=== PATIENT | male | born 1970 | race Caucasian/White ===

== ENCOUNTER 2018-02-25 07:12 | Emergency (ER) | payer SELFPAY ==
--- OUTSIDE RECORDS SUMMARY | 2018-02-25 07:14 | XMS REPORT ---
:1970 [facility] [address] [address] [place] [address] Care Team Providers Name Role Phone DR TRISTIN MACE Unavailable Unavailable Problems This patient has no known problems. Allergies, Adverse Reactions, Alerts This patient has no known allergies or adverse reactions. Medications This patient has no known medications. Results Test Description Test Time Test Comments Text Results Atomic Results Result Comments OVA AND PARASITE EXAM 2017-01-15 07:41:00 Test Item Value Reference Range Comments Direct Exam (test code=DE1) TESTING PERFORMED BY: [employer] Direct Exam (test code=DE17) [id number] Direct Exam (test code=DE2) NO OVA ,CYSTS, OR PARASITES SEEN STOOL CULTURE (GI)2017-01-13 12:32:00 Test Item Value Reference Range Comments Culture Observations (test NO SALMONELLA, SHIGELLA, STAPH code=COB1) AUREUS OR CAMPYLOBACTER ISOLATED. SCREENING Culture Observations (test NEGATIVE FOR E. COLI 0157:H7 code=COB17) Culture Observations (test REDUCED NORMAL COOKIE, GRAM code=COB2) POSITIVE ORGANISMS ONLY. DIRECT STREP GROUP [id number] 10:58:00 Test Item Value Reference Range Comments Culture Observations (test NO BETA HEMOLYTIC code=COB1) STREPTOCOCCUS ISOLATED Direct Exam (test code=DE3) NEGATIVE FOR STREP A ANTIGEN NM HIDA SCAN WITH [id number] 13:18:28HIDA scanLocation code: [id number] history: Right upper quadrant painComments: Following the intravenous administration of 6.0 mCi of technetium 99mCholetec, sequential imaging of the abdomen was performed. There is promptclearance and uptake by the liver with prompt excretion into the biliarysystem. There is visualization of the common bile duct and gallbladder at 15minutes and eventually opacification of the small bowel at 60 minutes.Impression:1. No evidence of acute cholecystitis.OCCULT [id number] 06:41:00 Test Item Value Reference Range Comments Direct Exam (test code=DE1) POSITIVE FOR OCCULT BLOOD BASIC METABOLIC [id number] 05:16:00 Test Item Value Reference Range Comments GLUCOSE (test code=06D) 74 mg/dL 75-100 SODIUM (test code=01A) 140 mmol/L 136-145 POTASSIUM (test code=01B) 3.6 mmol/L 3.6-5.1 CHLORIDE (test code=04A) 108 mmol/L 98-107 CO2 (test code=02A) 24 mmol/L 22-32 ANION GAP (test code=ANG) 11.6 mmol/L BUN (test code=05D) 8 mg/dL 7-18 CREATININE (test code=03E) 0.7 mg/dL 0.7-1.3 BUN/CREA R (test code=BCR) 11 12-20 CALCIUM (test code=09D) 7.1 mg/dL 8.3-9.5 CBC (INCLUDES AUTOMATED DIFFERENTIAL)2017-01-11 04:49:00 Test Item Value Reference Range Comments WBC (test code=WBC) 6.9 10\S\3/uL 4.5-11.0 RBC (test code=RBC) 4.61 10\S\6/uL 4.20-5.60 HGB (test code=HBG) 13.8 g/dL 14.0-18.0 HCT (test code=HCT) 41.4 % 35.0-46.0 MCV (test code=MCV) 89.8 fL 80.0-94.0 MCH (test code=MCH) 29.9 pg 27.0-31.0 MCHC (test code=MCHC) 33.3 g/dL 32.0-36.0 RDW (test code=RDW) 12.9 % 11.5-14.5 PLT (test code=PLT) 141 10\S\3/uL 130-400 MPV (test code=MPV) 11.0 fL 9.4-12.4 NEUTROP # (test code=NE#) 4.6 10\S\3/uL 2.0-8.0 LYMPH # (test code=LY#) 1.3 10\S\3/uL 1.2-4.0 MONOCYTE # (test code=MO#) 0.8 10\S\3/uL 0.0-1.1 EOSINOPH # (test code=EO#) 0.1 10\S\3/uL 0.0-0.7 BASOPHIL # (test code=BA#) 0.0 10\S\3/uL 0.0-0.3 IG # (test code=IG#) 0.02 10\S\3/uL 0.00-0.06 NRBC # (test code=NRBC#) 0.00 10\S\3/uL 0.00-0.01 NEUTROPH % (test code=NE%) 66.4 % 35.0-73.0 LYMPH % (test code=LY%) 18.9 % 20.0-55.0 MONO % (test code=MO%) 12.1 % 2.5-10.0 EOSINOPH % (test code=EO%) 2.0 % 0.0-5.0 BASOPHIL % (test code=BA%) 0.3 % 0.0-2.0 IG % (test code=IG%) 0.3 % 0.0-0.8 NRBC% (test code=NRBC%) 0.0 % 0.0-0.2 MANDIFF (test code=MDIFF) NO NO RBC MORPH (test code=RBCMOR) NORMAL U/S [id number] 17:40:53RIGHT UPPER QUADRANT ULTRASOUNDLocation: [id number] HISTORY: Mild bilirubin elevation. Distended gallbladder on CT scanCOMPARISON: CT scan todayTechnique:Real-time Duplex grayscale, color flow and spectral Doppler imaging analysiswas performed. Venous inflow via the portal vein was examined. COMMENT: The liver is normal in size and echogenicity without masses orintrahepatic biliary dilatation. Normal hepatopetal flow in the main portalvein was documented. The gallbladder is mildly distended without gallstones orsludge. Gallbladder wall measures 0.44 cm , mildly thickened. The common bileduct is normal at 0.57 cm. The right kidney measures 11.5 x 5.5 x 5.2 cm inlength, grossly normal. The pancreas is grossly normal. There is no evidenceof free fluid or adenopathy. The visualized portions of the aorta and IVC areunremarkable. IMPRESSION: Distended gallbladder with thick wall. Consider the possibility of acalculuscholecystitis. Consider follow-up MRCP or HIDA scan.CT ABDOMEN AND PELVIS WITH [id number] 15:49:29Contrast-enhanced CT of the abdomen and pelvisClinical indication: Left upper quadrant painComparison: NoneLocation J7Yjegzu CT is obtained from lung bases to the inferior pubic rami afterintravenous contrast with 5 mm axial and coronal and sagittal reconstructionsprovided. Venous and delayed series are performed. One or more of the followingdose reduction techniques were used: Automated exposure control , adjustment ofthe MA and/or kV according to patient size, and/or utilization of iterativereconstruction technique. DLP 1348Lung bases are clear. Heart is normal in size.Vessels are normal in caliber.Liver, spleen, stomach, pancreas, kidneys and adrenal glands are remarkable fora 1 cm cyst in the superior pole of the left kidney.The gallbladder is distended measuring 5 cm in AP diameter and width.The colonis fluid-filled and demonstrates mild thickening of the bowel wall suggestingcolitis or gastroenteritis. Appendix is unremarkable.The urinary bladder, prostate and perirectal soft tissues are unremarkable.Bony structures are unremarkable.Impression:1. Gallbladder is distended and may be hydropic.2. There is fluid and bowel wall thickening of the colon suggestinggastroenteritis or colitis.DIRECT INFLUENZA A AND B [id number] 15:08:00 Test Item Value Reference Range Comments Direct Exam (test code=DE3) PRESUMPTIVE NEGATIVE FOR THE PRESENCE OF INFLUENZA ANTIGEN XR CHEST 2 [id number] 15:06:17Exam: Chest x-ray 2 viewsHISTORY: Chest painLocation: [id number]:The heart size is normal and lung ferreira are clear. Osseous structures areintact.IMPRESSION:1. Normal chest.URINALYSIS WITH [id number] 15:06:00 Test Item Value Reference Range Comments COLOR (test code=COLU) DK YELLOW YELLOW CLARITY (test code=CLA) CLEAR CLEAR GLUCOSE UR (test code=UA GLUCOSE) NEGATIVE NEGATIVE BILI UR (test code=BILE) 1+ NEGATIVE KETONES UR (test code=KITA) TRACE NEGATIVE SP GRAVITY (test code=SPGR) 1.035 1.005-1.030 PH UR (test code=PH) 6.0 4.5-8.0 PROTEIN UR (test code=PU) 2+ NEGATIVE UROBIL UR (test code=UROQ) 0.2 EU/dL 0.2-1.0 NITRITE UR (test code=NITRITE) NEGATIVE NEGATIVE BLOOD UR (test code=UA BLOOD) NEGATIVE NEGATIVE LEUK ES UR (test code=LEUK) TRACE NEGATIVE WBC UR (test code=UWBC) 4 /HPF 0-3 RBC UR (test code=URBC) 0 /HPF 0-2 EPITH UR (test code=UEPC) FEW /LPF NONE BACTERIA UR (test code=UBACT) NONE /HPF NONE CAST UR (test code=CAST) /LPF NONE CRYSTAL UR (test code=CRYU) / LPF NONE MUCUS UR (test code=MUC) FEW / HPF NONE AMORPH UR (test code=CHELSEY) / HPF NONE TRICH UR (test code=UTRICH) /HPF NONE YEAST UR (test code=UY) /HPF NONE SPERM UR (test code=USPERM) /HPF NONE CARDIAC [id number] 15:00:00 Test Item Value Reference Range Comments TROPONIN I (test code=A84) <0.015 ng/mL 0.000-0.045 CKMB (test code=A49) <1.0 ng/mL <=3.6 CPK (test code=32A) 58 IU/L 39-308 [id number] 14:57:00 Test Item Value Reference Range Comments MAGNESIUM (test code=48A) 2.2 mg/dL 1.8-2.4 COMPREHENSIVE METABOLIC [id number] 14:56:00 Test Item Value Reference Range Comments GLUCOSE (test code=06D) 102 mg/dL 75-100 SODIUM (test code=01A) 140 mmol/L 136-145 POTASSIUM (test code=01B) 4.3 mmol/L 3.6-5.1 CHLORIDE (test code=04A) 104 mmol/L 98-107 CO2 (test code=02A) 31 mmol/L 22-32 ANION GAP (test code=ANG) 9.3 mmol/L BUN (test code=05D) 10 mg/dL 7-18 CREATININE (test code=03E) 0.9 mg/dL 0.7-1.3 BUN/CREA R (test code=BCR) 11 12-20 CALCIUM (test code=09D) 8.4 mg/dL 8.3-9.5 BILI TOTAL (test code=11A) 1.3 mg/dL 0.2-1.0 PROTEIN (test code=07D) 7.4 g/dL 6.4-8.2 ALBUMIN (test code=08D) 3.6 g/dL 3.5-4.8 GLOBULIN (test code=GLB) 3.8 g/dL 1.5-3.8 ALB/GLOB (test code=AGRR) 0.9 1.0-2.6 ALK PHOS (test code=35A) 52 IU/L 42-121 AST (test code=30A) 33 IU/L <=42 ALT (test code=31A) 39 IU/L <=78 AMYLASE AND [id number] 14:56:00 Test Item Value Reference Range Comments AMYLASE (test code=10A) 19 U/L 28-100 LIPASE (test code=60A) 87 IU/L 73-393 CBC (INCLUDES AUTOMATED DIFFERENTIAL)2017-01-10 14:37:00 Test Item Value Reference Range Comments WBC (test code=WBC) 9.8 10\S\3/uL 4.5-11.0 RBC (test code=RBC) 5.69 10\S\6/uL 4.20-5.60 HGB (test code=HBG) 16.9 g/dL 14.0-18.0 HCT (test code=HCT) 51.0 % 35.0-46.0 MCV (test code=MCV) 89.6 fL 80.0-94.0 MCH (test code=MCH) 29.7 pg 27.0-31.0 MCHC (test code=MCHC) 33.1 g/dL 32.0-36.0 RDW (test code=RDW) 12.9 % 11.5-14.5 PLT (test code=PLT) 157 10\S\3/uL 130-400 MPV (test code=MPV) 11.3 fL 9.4-12.4 NEUTROP # (test code=NE#) 8.1 10\S\3/uL 2.0-8.0 LYMPH # (test code=LY#) 0.8 10\S\3/uL 1.2-4.0 MONOCYTE # (test code=MO#) 0.7 10\S\3/uL 0.0-1.1 EOSINOPH # (test code=EO#) 0.1 10\S\3/uL 0.0-0.7 BASOPHIL # (test code=BA#) 0.0 10\S\3/uL 0.0-0.3 IG # (test code=IG#) 0.02 10\S\3/uL 0.00-0.06 NRBC # (test code=NRBC#) 0.00 10\S\3/uL 0.00-0.01 NEUTROPH % (test code=NE%) 82.9 % 35.0-73.0 LYMPH % (test code=LY%) 8.6 % 20.0-55.0 MONO % (test code=MO%) 7.3 % 2.5-10.0 EOSINOPH % (test code=EO%) 0.8 % 0.0-5.0 BASOPHIL % (test code=BA%) 0.2 % 0.0-2.0 IG % (test code=IG%) 0.2 % 0.0-0.8 NRBC% (test code=NRBC%) 0.0 % 0.0-0.2 MANDIFF (test code=MDIFF) NO NO RBC MORPH (test code=RBCMOR) NORMAL
[2018-02-25] MEDS ORDERED: IBUPROFEN 400 MG TAB ONE (07:50)
--- NOTE | 2018-02-25 09:17 | ER ---
Nurse's Notes [facility] Name: Semaj Ann Age: 47 yrs Sex: Male : 1970 Arrival Date: 02/25/2018 Time: 07:16 Bed 14 Private MD: Diagnosis: Sprain of ankle-Left Presentation: 02/25 07:34 Presenting complaint: Patient states: slipped while getting out of his truck yesterday, iw rolled left ankle, laceration noted to left great toe, dressing in place, no bleeding. Transition of care: patient was not received from another setting of care. Onset of symptoms was February 24, 2018. Initial Sepsis Screen: Does the patient meet any 2 criteria? No. Patient's initial sepsis screen is negative. Does the patient have a suspected source of infection? No. Patient's initial sepsis screen is negative. Care prior to arrival: None. 07:34 Method Of Arrival: Wheelchair iw 07:34 Acuity: SALONI 4 iw Triage Assessment: 07:45 General: Appears in no apparent distress. uncomfortable, Behavior is calm, cooperative, hj appropriate for age. Pain: Complains of pain in right foot. Musculoskeletal: Reports pain in right foot. Historical: - Allergies: 07:35 NKA; iw - PMHx: 07:35 Hypertension; iw - PSHx: 07:35 Facial reconstruction; Heart surgery - artery repair; iw - Immunization history:: Last tetanus immunization: < 5 years ago. - Social history:: Smoking status: Patient uses tobacco products, smokes one-half pack cigarettes per day. Screenin:45 Abuse screen: Denies threats or abuse. Denies injuries from another. Nutritional hj screening: No deficits noted. Tuberculosis screening: No symptoms or risk factors identified. Fall Risk None identified. Assessment: 07:46 General: Appears in no apparent distress. uncomfortable, Behavior is calm, cooperative, hj appropriate for age. Pain: Complains of pain in right foot. Neuro: Level of Consciousness is awake, alert, obeys commands, Oriented to person, place, time, situation, Appropriate for age. Cardiovascular: Capillary refill < 3 seconds Patient's skin is warm and dry. Respiratory: Airway is patent Respiratory effort is even, unlabored, Respiratory pattern is regular, symmetrical. GI: No signs and/or symptoms were reported involving the gastrointestinal system. : No signs and/or symptoms were reported regarding the genitourinary system. EENT: No signs and/or symptoms were reported regarding the EENT system. Derm: No signs and/or symptoms reported regarding the dermatologic system. Musculoskeletal: Circulation, motion, and sensation intact. Range of motion: Swelling. Vital Signs: 07:35 BP 167 / 118; Pulse 93; Resp 16 S; Temp 98.2(TE); Pulse Ox 98% on R/A; Weight 88.45 kg; iw Height 5 ft. 10 in. (177.80 cm); Pain 8/10; 09:25 BP 155 / 101; Pulse 87; Resp 18; Pulse Ox 99% on R/A; em 07:35 Body Mass Index 27.98 (88.45 kg, 177.80 cm) iw ED Course: 07:16 Patient arrived in ED. rg4 07:30 Hiram Sanchez PA is PHCP. cp 07:30 Lawrence Adler MD is Attending Physician. cp 07:33 Conrad Palumbo, RN is Primary Nurse. hj 07:35 Triage completed. iw 07:35 Arm band placed on. iw 07:46 Patient has correct armband on for positive identification. Bed in low position. Call hj light in reach. Side rails up X 1. 09:06 X-ray completed. Portable x-ray completed in exam room. Patient tolerated procedure jb2 well. 09:08 XRAY Ankle LEFT 3 view In Process Unspecified. EDMS 09:35 No provider procedures requiring assistance completed. Patient did not have IV access em during this emergency room visit. Administered Medications: 07:43 Drug: Ibuprofen 800 mg Route: PO; hj 09:26 Follow up: Response: No adverse reaction; Pain is decreased hj Outcome: 09:17 Discharge ordered by . cp 09:36 Discharged to home ambulatory. em 09:36 Condition: good 09:36 Discharge instructions given to patient, Instructed on discharge instructions, follow up and referral plans. medication usage, Demonstrated understanding of instructions, follow-up care, medications, crutch walking, Prescriptions given X 1. 09:36 Patient left the ED. em Signatures: Dispatcher [employer] EDMS Stevie Nathan jb2 Nick Landis, SEASONAL DELIVERY DRIVER SEASONAL DELIVERY DRIVER em Reena Frances RN RN Linwood, Conrad, RN RN hj Page, Hiram, PA PA cp Bandar, Randi rg4
--- NOTE | 2018-02-25 09:17 | RAD REPORT ---
EXAM DESCRIPTION: RAD - Ankle Left 3 View -02/25/2018 9:08 am CLINICAL HISTORY: Left ankle pain status post injury FINDINGS: No fracture or dislocation is seen.
--- NOTE | 2018-02-25 09:18 | EDPHYS ---
Physician Documentation [facility] Name: Semaj Ann Age: 47 yrs Sex: Male : 1970 Arrival Date: 02/25/2018 Time: 07:16 Bed 14 Private MD: ED Physician Lawrence Adler HPI: 02/25 07:45 This 47 yrs old Male presents to ER via Wheelchair with complaints of Ankle cp Injury. 07:45 The patient presents with an injury, pain, that is acute. The complaints affect the cp left ankle. Onset: The symptoms/episode began/occurred yesterday. 07:45 Context: resulted from a mis-step by the patient, getting out of truck, The patient can cp partially bear weight on the affected extremity. the patient is able to ambulate, with moderate difficulty. Historical: - Allergies: 07:35 NKA; iw - PMHx: 07:35 Hypertension; iw - PSHx: 07:35 Facial reconstruction; Heart surgery - artery repair; iw - Immunization history:: Last tetanus immunization: < 5 years ago. - Social history:: Smoking status: Patient uses tobacco products, smokes one-half pack cigarettes per day. ROS: 07:50 Constitutional: Negative for body aches, chills, fever, poor PO intake. cp 07:50 Eyes: Negative for injury, pain, redness, and discharge. cp 07:50 ENT: Negative for drainage from ear(s), ear pain, sore throat, difficulty swallowing, difficulty handling secretions. 07:50 Cardiovascular: Negative for chest pain, edema, palpitations. 07:50 Respiratory: Negative for cough, shortness of breath, wheezing. 07:50 Abdomen/GI: Negative for abdominal pain, nausea, vomiting, and diarrhea. 07:50 MS/extremity: Positive for pain, tenderness, of the left ankle, Negative for paresthesias. 07:50 All other systems are negative. Exam: 07:58 Constitutional: The patient appears in no acute distress, alert, awake, well developed, cp well nourished. 07:58 Head/Face: Normocephalic, atraumatic. cp 07:58 Eyes: Periorbital structures: appear normal, Conjunctiva: normal, no exudate, no injection, Sclera: no appreciated abnormality, Lids and lashes: appear normal, bilaterally. 07:58 ENT: External ear(s): are unremarkable, Nose: is normal, Mouth: Lips: moist, Oral mucosa: moist, Posterior pharynx: is normal, airway is patent. 07:58 Neck: ROM/movement: is normal, is supple, without pain, no range of motions limitations, no nuchal rigidity. 07:58 Chest/axilla: Inspection: normal. 07:58 Cardiovascular: Rate: normal, Rhythm: regular. 07:58 Respiratory: the patient does not display signs of respiratory distress, Respirations: normal, no use of accessory muscles, no retractions, no splinting, no tachypnea. 07:58 Abdomen/GI: Exam negative for discomfort, distension, guarding, Inspection: abdomen appears normal. 07:58 Musculoskeletal/extremity: Perfusion: the extremity is normally perfused throughout, Sensation intact. Joints: All joints are normal except the left ankle displays swelling, tenderness. 07:58 Skin: cellulitis, is not appreciated, injury, avulsion(s), a small of the right great toe, no rash present. Vital Signs: 07:35 BP 167 / 118; Pulse 93; Resp 16 S; Temp 98.2(TE); Pulse Ox 98% on R/A; Weight 88.45 kg; iw Height 5 ft. 10 in. (177.80 cm); Pain 8/10; 09:25 BP 155 / 101; Pulse 87; Resp 18; Pulse Ox 99% on R/A; em 07:35 Body Mass Index 27.98 (88.45 kg, 177.80 cm) iw Procedures: 09:25 Splinting: Splint applied to left ankle using ankle splint. applied by nurse. Examined cp by me, post splint application: neurovascular intact, Patient tolerated well. 09:25 Crutch training provided to patient and/or family. Return demonstration given. cp MDM: 07:34 Patient medically screened. cp 09:16 Data reviewed: vital signs, nurses notes, radiologic studies, plain films. Test cp interpretation: by ED physician or midlevel provider: plain radiologic studies. Counseling: I had a detailed discussion with the patient and/or guardian regarding: the historical points, exam findings, and any diagnostic results supporting the discharge/admit diagnosis, radiology results, to return to the emergency department if symptoms worsen or persist or if there are any questions or concerns that arise at home. 02/25 07:43 Order name: XRAY Ankle LEFT 3 view; Complete Time: 09:18 cp 02/25 09:18 Interpretation: Report reviewed. cp 02/25 09:09 Order name: Crutches; Complete Time: :34 cp 02/25 09:09 Order name: Ankle Splint: Aircast; Complete Time: :34 cp Administered Medications: 07:43 Drug: Ibuprofen 800 mg Route: PO; 09:26 Follow up: Response: No adverse reaction; Pain is decreased Disposition: 11:34 Co-signature as Attending Physician, Lawrence Adler MD. rn Disposition: 02/25/18 09:17 Discharged to Home. Impression: Sprain of ankle - Left. - Condition is Stable. - Discharge Instructions: Elastic Bandage and RICE, Ankle Sprain. - Prescriptions for Naprosyn 500 mg Oral Tablet - take 1 tablet by ORAL route 2 times per day take with food; 20 tablet. - Work release form, Medication Reconciliation Form, Thank You Letter, Antibiotic Education, Prescription Opioid Use form. - Follow up: Private Physician; When: 5 - 6 days; Reason: Recheck today's complaints. - Problem is new. - Symptoms have improved. Signatures: Dispatcher [employer] EDNick Chavis, CENTRAL OFFICE INSPECTOR CENTRAL OFFICE INSPECTOR em Reena Frances RN RN iw Nieto, Roman, MD MD rn Joaquin, Henry, RN RN hj Page, Corey, PA PA cp Corrections: (The following items were deleted from the chart) 09:36 09:17 02/25/2018 09:17 Discharged to Home. Impression: Sprain of ankle - Left. em Condition is Stable. Forms are Medication Reconciliation Form, Thank You Letter, Antibiotic Education, Prescription Opioid Use. Follow up: Private Physician; When: 5 - 6 days; Reason: Recheck today's complaints. Problem is new. Symptoms have improved. cp
== END 2018-02-25 09:36 | disposition home or self-care (01) ==
LOC: ER 07:12
DX: S93.402A Sprain of unspecified ligament of left ankle, initial encounter (principal); X58.XXXA Exposure to other specified factors, initial encounter; Y93.89 Activity, other specified; Y92.9 Unspecified place or not applicable; I10 Essential (primary) hypertension; F17.210 Nicotine dependence, cigarettes, uncomplicated
CPT/HCPCS: 99284

== ENCOUNTER 2020-06-09 11:48 | Emergency (ER) | payer BC, SELFPAY ==
--- OUTSIDE RECORDS SUMMARY | 2020-06-09 11:50 | XMS REPORT | Continuity of Care Document ---
:1970 Author Organization [facility] t Address [facility] [address] [place] [address] Care Team Providers Name Role Phone DR NAKITA Attending Clinician Unavailable DR NAKITA Admitting Clinician Unavailable Problems This patient has no known problems. Allergies, Adverse Reactions, Alerts This patient has no known allergies or adverse reactions. Medications This patient has no known medications. Procedures This patient has no known procedures. Results Test Description Test Time Test Comments Results Result Comments Source OVA AND PARASITE EXAM 2017-01-15 07:41:00 Test Item Value Reference Range Interpretation Comme nts Direct Exam (test code = DE1) TESTING PERFORMED BY: [employer] [address] Direct Exam (test code = DE17) [id number] Direct Exam (test code = DE2) NO OVA ,CYSTS, OR PARASITES SEEN STOOL CULTURE (GI)2017-01-13 12:32:00 Test Item Value Reference Range Interpretation Comments Culture Observations NO SALMONELLA, (test code = COB1) SHIGELLA, STAPH AUREUS OR CAMPYLOBACTER ISOLATED. SCREENING Culture Observations NEGATIVE FOR E. COLI (test code = COB17) 0157:H7 Culture Observations REDUCED NORMAL COOKIE, (test code = COB2) GRAM POSITIVE ORGANISMS ONLY. DIRECT STREP GROUP [id number] 10:58:00 Test Item Value Reference Range Interpretation Comments Culture Observations NO BETA HEMOLYTIC (test code = COB1) STREPTOCOCCUS ISOLATED Direct Exam (test code NEGATIVE FOR STREP A = DE3) ANTIGEN NM HIDA SCAN WITH [id number] 13:18:28HIDA scanLocation code: [id number] history: Right upper quadrant painComments: Following the intravenous administration of 6.0 mCi of technetium 99mCholetec, sequential imaging of the abdomen was performed. There is promptclearance and uptake by the liver with prompt excretion into the biliarysystem. There is visualization of the common bile duct and gallbladder at 15minutes and eventually opacification of the small bowel at 60 minutes.Impression:1. No evidence of acute cholecystitis.OCCULT [id number] 06:41:00 Test Item Value Reference Range Interpretation Comments Direct Exam (test code POSITIVE FOR OCCULT = DE1) BLOOD BASIC METABOLIC [id number] 05:16:00 Test Item Value Reference Range Interpretation Comments GLUCOSE (test code = 06D) 74 mg/dL 75-100 L SODIUM (test code = 01A) 140 mmol/L 136-145 POTASSIUM (test code = 01B) 3.6 mmol/L 3.6-5.1 CHLORIDE (test code = 04A) 108 mmol/L 98-107 H CO2 (test code = 02A) 24 mmol/L 22-32 ANION GAP (test code = ANG) 11.6 mmol/L BUN (test code = 05D) 8 mg/dL 7-18 CREATININE (test code = 03E) 0.7 mg/dL 0.7-1.3 BUN/CREA R (test code = BCR) 11 12-20 L CALCIUM (test code = 09D) 7.1 mg/dL 8.3-9.5 L CBC (INCLUDES AUTOMATED DIFFERENTIAL)2017-01-11 04:49:00 Test Item Value Reference Range Interpretation Comments WBC (test code = WBC) 6.9 10\S\3/uL 4.5-11.0 RBC (test code = RBC) 4.61 10\S\6/uL 4.20-5.60 HGB (test code = HBG) 13.8 g/dL 14.0-18.0 L HCT (test code = HCT) 41.4 % 35.0-46.0 MCV (test code = MCV) 89.8 fL 80.0-94.0 MCH (test code = MCH) 29.9 pg 27.0-31.0 MCHC (test code = MCHC) 33.3 g/dL 32.0-36.0 RDW (test code = RDW) 12.9 % 11.5-14.5 PLT (test code = PLT) 141 10\S\3/uL 130-400 MPV (test code = MPV) 11.0 fL 9.4-12.4 NEUTROP # (test code = NE#) 4.6 10\S\3/uL 2.0-8.0 LYMPH # (test code = LY#) 1.3 10\S\3/uL 1.2-4.0 MONOCYTE # (test code = MO#) 0.8 10\S\3/uL 0.0-1.1 EOSINOPH # (test code = EO#) 0.1 10\S\3/uL 0.0-0.7 BASOPHIL # (test code = BA#) 0.0 10\S\3/uL 0.0-0.3 IG # (test code = IG#) 0.02 10\S\3/uL 0.00-0.06 NRBC # (test code = NRBC#) 0.00 10\S\3/uL 0.00-0.01 NEUTROPH % (test code = NE%) 66.4 % 35.0-73.0 LYMPH % (test code = LY%) 18.9 % 20.0-55.0 L MONO % (test code = MO%) 12.1 % 2.5-10.0 H EOSINOPH % (test code = EO%) 2.0 % 0.0-5.0 BASOPHIL % (test code = BA%) 0.3 % 0.0-2.0 IG % (test code = IG%) 0.3 % 0.0-0.8 NRBC% (test code = NRBC%) 0.0 % 0.0-0.2 MANDIFF (test code = MDIFF) NO NO RBC MORPH (test code = RBCMOR) NORMAL U/S [id number] 17:40:53RIGHT UPPER QUADRANT ULTRASOUNDLocation: [id number] HISTORY: Mild bilirubin elevation. Distended gallbladder on [...] without gallstones orsludge. Gallbladder wall measures 0.44 cm, mildly thickened. The common bileduct is normal [...] or HIDA scan.CT ABDOMEN AND PELVIS WITH [id number] 15:49:29Contrast- enhanced CT of the abdomen and pelvisClinical indication: Left upper quadrant painComparison: NoneLocation [id number] CT is obtained from lung bases to the inferior pubic rami afterintravenous contrast with 5 mm axial and coronal and sagittal reconstructionsprovided. Venous and delayed series are performed. One or more of the followingdose reduction techniques were used: Automated exposure control, adjustment ofthe MA and/or kV according to patient size, and/or utilization of iterativereconstruction technique. DLP 1348Lung bases are clear. Heart is normal in size.Vessels are normal in caliber.Liver, spleen, stomach, pancreas, kidneys and adrenal glands are remarkable fora 1 cm cyst in the bolden perior pole of the left kidney.The gallbladder is distended measuring 5 cm in AP diameter and width.The colonis fluid-filled and demonstrates mild thickening of the bowel wall suggestingcolitis or gastroenteritis. Appendix is unremarkable.The urinary bladder, prostate and perirectal soft tissues are u nremarkable.Bony structures are unremarkable.Impression:1. Gallbladder is distended and may be hydropic.2. There is fluid and bowel wall thickening of the colon suggestinggastroenteritis or colitis.DIRECT INFLUENZA A AND B DETECT 2017-01-10 15:08:00 Test Item Value Reference Range Interpretation Comments Direct Exam (test PRESUMPTIVE NEGATIVE FOR code = DE3) THE PRESENCE OF INFLUENZA ANTIGEN XR CHEST 2 [id number] 15:06:17Exam: Chest x-ray 2 viewsHISTORY: Chest painLocation: [id number]:The heart size is normal and lung ferreira are clear. Osseous structures areintact.IMPRESSION:1. Normal chest.URINALYSIS WITH MICRO 2017-01-10 15:06:00 Test Item Value Reference Range Interpretation Comments COLOR (test code = COLU) DK YELLOW YELLOW A CLARITY (test code = CLA) CLEAR CLEAR GLUCOSE UR (test code = UA GLUCOSE) NEGATIVE NEGATIVE BILI UR (test code = BILE) 1+ NEGATIVE A KETONES UR (test code = KITA) TRACE NEGATIVE A SP GRAVITY (test code = SPGR) 1.035 1.005-1.030 H PH UR (test code = PH) 6.0 4.5-8.0 PROTEIN UR (test code = PU) 2+ NEGATIVE A UROBIL UR (test code = UROQ) 0.2 EU/dL 0.2-1.0 NITRITE UR (test code = NITRITE) NEGATIVE NEGATIVE BLOOD UR (test code = UA BLOOD) NEGATIVE NEGATIVE LEUK ES UR (test code = LEUK) TRACE NEGATIVE A WBC UR (test code = UWBC) 4 /HPF 0-3 H RBC UR (test code = URBC) 0 /HPF 0-2 EPITH UR (test code = UEPC) FEW /LPF NONE A BACTERIA UR (test code = UBACT) NONE /HPF NONE CAST UR (test code = CAST) /LPF NONE CRYSTAL UR (test code = CRYU) / LPF NONE MUCUS UR (test code = MUC) FEW / HPF NONE A AMORPH UR (test code = CHELSEY) / HPF NONE TRICH UR (test code = UTRICH) /HPF NONE YEAST UR (test code = UY) /HPF NONE SPERM UR (test code = USPERM) /HPF NONE CARDIAC [id number] 15:00:00 Test Item Value Reference Range Interpretation Comments TROPONIN I (test code = A84) <0.015 ng/mL 0.000-0.045 CKMB (test code = A49) <1.0 ng/mL <=3.6 CPK (test code = 32A) 58 IU/L 39-308 [id number] 14:57:00 Test Item Value Reference Range Interpretation Comments MAGNESIUM (test code = 48A) 2.2 mg/dL 1.8-2.4 COMPREHENSIVE METABOLIC [id number] 14:56:00 Test Item Value Reference Range Interpretation Comments GLUCOSE (test code = 06D) 102 mg/dL 75-100 H SODIUM (test code = 01A) 140 mmol/L 136-145 POTASSIUM (test code = 01B) 4.3 mmol/L 3.6-5.1 CHLORIDE (test code = 04A) 104 mmol/L 98-107 CO2 (test code = 02A) 31 mmol/L 22-32 ANION GAP (test code = ANG) 9.3 mmol/L BUN (test code = 05D) 10 mg/dL 7-18 CREATININE (test code = 03E) 0.9 mg/dL 0.7-1.3 BUN/CREA R (test code = BCR) 11 12-20 L CALCIUM (test code = 09D) 8.4 mg/dL 8.3-9.5 BILI TOTAL (test code = 11A) 1.3 mg/dL 0.2-1.0 H PROTEIN (test code = 07D) 7.4 g/dL 6.4-8.2 ALBUMIN (test code = 08D) 3.6 g/dL 3.5-4.8 GLOBULIN (test code = GLB) 3.8 g/dL 1.5-3.8 ALB/GLOB (test code = AGRR) 0.9 1.0-2.6 L ALK PHOS (test code = 35A) 52 IU/L 42-121 AST (test code = 30A) 33 IU/L <=42 ALT (test code = 31A) 39 IU/L <=78 AMYLASE AND [id number] 14:56:00 Test Item Value Reference Range Interpretation Comments AMYLASE (test code = 10A) 19 U/L 28-100 L LIPASE (test code = 60A) 87 IU/L 73-393 CBC (INCLUDES AUTOMATED DIFFERENTIAL)2017-01-10 14:37:00 Test Item Value Reference Range Interpretation Comments WBC (test code = WBC) 9.8 10\S\3/uL 4.5-11.0 RBC (test code = RBC) 5.69 10\S\6/uL 4.20-5.60 H HGB (test code = HBG) 16.9 g/dL 14.0-18.0 HCT (test code = HCT) 51.0 % 35.0-46.0 H MCV (test code = MCV) 89.6 fL 80.0-94.0 MCH (test code = MCH) 29.7 pg 27.0-31.0 MCHC (test code = MCHC) 33.1 g/dL 32.0-36.0 RDW (test code = RDW) 12.9 % 11.5-14.5 PLT (test code = PLT) 157 10\S\3/uL 130-400 MPV (test code = MPV) 11.3 fL 9.4-12.4 NEUTROP # (test code = NE#) 8.1 10\S\3/uL 2.0-8.0 H LYMPH # (test code = LY#) 0.8 10\S\3/uL 1.2-4.0 L MONOCYTE # (test code = MO#) 0.7 10\S\3/uL 0.0-1.1 EOSINOPH # (test code = EO#) 0.1 10\S\3/uL 0.0-0.7 BASOPHIL # (test code = BA#) 0.0 10\S\3/uL 0.0-0.3 IG # (test code = IG#) 0.02 10\S\3/uL 0.00-0.06 NRBC # (test code = NRBC#) 0.00 10\S\3/uL 0.00-0.01 NEUTROPH % (test code = NE%) 82.9 % 35.0-73.0 H LYMPH % (test code = LY%) 8.6 % 20.0-55.0 L MONO % (test code = MO%) 7.3 % 2.5-10.0 EOSINOPH % (test code = EO%) 0.8 % 0.0-5.0 BASOPHIL % (test code = BA%) 0.2 % 0.0-2.0 IG % (test code = IG%) 0.2 % 0.0-0.8 NRBC% (test code = NRBC%) 0.0 % 0.0-0.2 MANDIFF (test code = MDIFF) NO NO RBC MORPH (test code = RBCMOR) NORMAL
[2020-06-09 13:09] LABS: Basophils % 0.6 % (0-1.3); Lymphocytes % 15.8 % (15.3-44.8); MPV 9.3 fL (7.6-11.3); RBC Red Blood Cell Count 5.31 M/uL (4.33-5.43)
[2020-06-09 13:35] LABS: BUN Blood Urea Nitrogen 9 mg/dL (7-18); Bicarbonate 29 mmol/L (21-32); Glucose Level 112 mg/dL (74-106); Potassium 4.1 mmol/L (3.5-5.1); Sodium Level 138 mmol/L (136-145)
[2020-06-09] MEDS ORDERED: NA CHLORIDE 0.9% 1,000 ML ONE (13:43)
--- NOTE | 2020-06-09 13:48 | RAD REPORT ---
EXAM DESCRIPTION: RAD - Chest Single View - 06/09/2020 1:30 pm CLINICAL HISTORY: COUGH Chest pain. COMPARISON: Chest Pa And Lat (2 Views) dated 07/15/2018; Chest Single View dated 08/16/2017 FINDINGS: Portable technique limits examination quality. The lungs are grossly clear. The heart is normal in size. No displaced fractures. IMPRESSION: No acute intrathoracic process suspected.
--- NOTE | 2020-06-09 14:20 | EDPHYS ---
Physician Documentation [facility] Name: Semaj Ann Age: 49 yrs Sex: Male : 1970 Arrival Date: 06/09/2020 Time: 11:51 Bed 25 Private MD: ED Physician Jhon Cheatham HPI: 06/09 14:19 This 49 yrs old Male presents to ER via Ambulatory with complaints of Cough. kb 14:56 The patient or guardian reports cough, that is intermittent, described as moderate, kb with productive sputum, that is purulent, difficulty breathing. Onset: The symptoms/episode began/occurred 2 week(s) ago. Severity of symptoms: At their worst the symptoms were moderate, in the emergency department the symptoms are unchanged. Modifying factors: The symptoms are alleviated by nothing, the symptoms are aggravated by heat. Associated signs and symptoms: Pertinent positives: rhinorrhea. The patient has not experienced similar symptoms in the past. The patient has not recently seen a physician. Pt reports cough and congestion for 2-3 weeks. States he has had pneumonia before and feels like it has turned to that. Reports green/yellow sputum in the mornings. Denies fever. . Historical: - Allergies: 12:04 NKA; ll1 - PMHx: 12:04 Hypertension; ll1 - PSHx: 12:04 Heart surgery - artery repair; Facial reconstruction; ll1 - Immunization history:: Flu vaccine is not up to date. - Social history:: Smoking status: Patient reports the use of cigarette tobacco products, smokes one pack cigarettes per day. Patient uses alcohol, only on a social basis. Patient/guardian denies using street drugs. - Coronavirus screen:: The patient has NOT traveled to [place] in the past 14 days. The patient has NOT had contact with known/suspected case of Coronavirus? Proceed with normal triage procedures. ROS: 15:01 Cardiovascular: Negative for chest pain, palpitations, and edema, Abdomen/GI: Negative kb for abdominal pain, nausea, vomiting, diarrhea, and constipation, Back: Negative for injury and pain, MS/Extremity: Negative for injury and deformity, Skin: Negative for injury, rash, and discoloration, Neuro: Negative for headache, weakness, numbness, tingling, and seizure. 15:01 Constitutional: Positive for malaise. 15:01 ENT: Positive for rhinorrhea, sinus congestion, sinus pain. 15:01 Respiratory: Positive for cough, shortness of breath, Negative for dyspnea on exertion, hemoptysis, orthopnea, pleurisy, sputum production, wheezing. Exam: 15:02 Constitutional: This is a well developed, well nourished patient who is awake, alert, kb and in no acute distress. Head/Face: Normocephalic, atraumatic. ENT: Nares patent. No nasal discharge, no septal abnormalities noted. Tympanic membranes are normal and external auditory canals are clear. Oropharynx with no redness, swelling, or masses, exudates, or evidence of obstruction, uvula midline. Mucous membranes moist. Neck: Trachea midline, no thyromegaly or masses palpated, and no cervical lymphadenopathy. Supple, full range of motion without nuchal rigidity, or vertebral point tenderness. No Meningismus. Chest/axilla: Normal chest wall appearance and motion. Nontender with no deformity. No lesions are appreciated. Cardiovascular: Regular rate and rhythm with a normal S1 and S2. No gallops, murmurs, or rubs. Normal PMI, no JVD. No pulse deficits. Respiratory: Lungs have equal breath sounds bilaterally, clear to auscultation and percussion. No rales, rhonchi or wheezes noted. No increased work of breathing, no retractions or nasal flaring. Abdomen/GI: Soft, non-tender, with normal bowel sounds. No distension or tympany. No guarding or rebound. No evidence of tenderness throughout. Back: No spinal tenderness. No costovertebral tenderness. Full range of motion. Skin: Warm, dry with normal turgor. Normal color with no rashes, no lesions, and no evidence of cellulitis. MS/ Extremity: Pulses equal, no cyanosis. Neurovascular intact. Full, normal range of motion. Neuro: Awake and alert, GCS 15, oriented to person, place, time, and situation. Cranial nerves II-XII grossly intact. Motor strength 5/5 in all extremities. Sensory grossly intact. Cerebellar exam normal. Normal gait. Vital Signs: 12:01 BP 187 / 98; Pulse 86; Resp 18; Temp 98.5; Pulse Ox 98% ; Weight 90.72 kg; Height 5 ft. ll1 11 in. (180.34 cm); Pain 6/10; 14:45 BP 148 / 84; Pulse 78; Resp 16; Temp 98.4(O); Pulse Ox 98% on R/A; Pain 0/10; ls4 12:01 Body Mass Index 27.89 (90.72 kg, 180.34 cm) ll1 MDM: 12:06 Patient medically screened. kb 15:01 Data reviewed: vital signs, nurses notes. Data interpreted: Pulse oximetry: on room air kb is 98 %. Interpretation: normal. 15:07 Counseling: I had a detailed discussion with the patient and/or guardian regarding: the kb historical points, exam findings, and any diagnostic results supporting the discharge/admit diagnosis, lab results, radiology results, the need for outpatient follow up, a family practitioner, to return to the emergency department if symptoms worsen or persist or if there are any questions or concerns that arise at home. 06/09 12:12 Order name: CBC with Diff; Complete Time: 13:21 kb 06/09 12:12 Order name: Basic Metabolic Panel; Complete Time: 13:48 kb 06/09 12:06 Order name: Chest Single View XRAY; Complete Time: 13:51 kb 06/09 12:12 Order name: Blood Culture Adult (2) kb 06/09 12:12 Order name: COVID-19 kb 06/09 12:12 Order name: IV Start; Complete Time: 12:41 kb Administered Medications: 13:17 Drug: NS 0.9% 1000 ml Route: IV; Rate: 1000 ml; Site: left antecubital; ls4 14:35 Follow up: IV Status: Completed infusion; IV Intake: 1000ml ls4 14:35 Drug: Augmentin 875 mg Route: PO; ls4 14:35 Drug: SOLU-Medrol 125 mg Route: IVP; Site: left antecubital; ls4 Disposition: 06/10 09:00 Co-signature as Attending Physician, Jhon Cheatham MD I agree with the assessment and kdr plan of care. Disposition: 06/09/20 14:19 Discharged to Home. Impression: Acute sinusitis, Acute upper respiratory infection, unspecified. - Condition is Stable. - Discharge Instructions: Sinusitis, Adult, [id number]-Uhfc, Viral Respiratory Infection, [id number], COVID-19. - Prescriptions for Augmentin 875- 125 mg Oral Tablet - take 1 tablet by ORAL route every 12 hours for 10 days; 20 tablet. Prednisone 20 mg Oral Tablet - take 1 tablet by ORAL route once daily for 5 days; 5 tablet. Albuterol Sulfate 90 mcg/actuation - inhale 1-2 puff by INHALATION route every 4-6 hours; 1 Inhaler. - Medication Reconciliation Form, Thank You Letter, Antibiotic Education, Prescription Opioid Use form. - Follow up: Emergency Department; When: As needed; Reason: Worsening of condition. Follow up: Private Physician; When: 2 - 3 days; Reason: Recheck today's complaints, Continuance of care, Re-evaluation by your physician. Signatures: Dispatcher [employer] EDMS Nemo Pretty, INDUSTRIAL AERIAL INSTALLER-C INDUSTRIAL AERIAL INSTALLER-Ckb Jhon Cheatham MD MD kdr Stewart, Lisa, RN RN ls4 Kit Almonte RN RN ll1 Corrections: (The following items were deleted from the chart) 06/09 14:46 14:19 06/09/2020 14:19 Discharged to Home. Impression: Acute sinusitis; Acute upper ls4 respiratory infection, unspecified. Condition is Stable. Forms are Medication Reconciliation Form, Thank You Letter, Antibiotic Education, Prescription Opioid Use. Follow up: Emergency Department; When: As needed; Reason: Worsening of condition. Follow up: Private Physician; When: 2 - 3 days; Reason: Recheck today's complaints, Continuance of care, Re-evaluation by your physician. kb
--- NOTE | 2020-06-09 14:20 | ER ---
Nurse's Notes [facility] Name: Semaj Ann Age: 49 yrs Sex: Male : 1970 Arrival Date: 06/09/2020 Time: 11:51 Bed 25 Private MD: Diagnosis: Acute sinusitis;Acute upper respiratory infection, unspecified Presentation: 06/09 12:01 Chief complaint: Patient states: Cough for 2-3 weeks. Diarrhea for 2 weeks. N/V for 2 ll1 days. SOB with exertion also. Feels feverish at home. Coronavirus screen: Client denies travel out of the [place] in the last 14 days. chills, congestion, cough unrelated to allergies, diarrhea, fatigue, nausea, shortness of breath, vomiting. Client presents with at least one sign or symptom that may indicate coronavirus-19. Standard/surgical mask placed on the client. Ebola Screen: Patient denies travel to an Ebola-affected area in the 21 days before illness onset. Initial Sepsis Screen: Does the patient meet any 2 criteria? No. Patient's initial sepsis screen is negative. Risk Assessment: Do you want to hurt yourself or someone else? Patient reports no desire to harm self or others. Onset of symptoms was May 20, 2020. 12:01 Method Of Arrival: Ambulatory ll1 12:01 Acuity: SALONI 3 ll1 12:07 Initial Sepsis Screen: Does the patient have a suspected source of infection? No. ls4 Patient's initial sepsis screen is negative. 12:07 Care prior to arrival: None. Activity prior to arrival: None. ls4 Triage Assessment: 12:07 General: Appears in no apparent distress. uncomfortable, Behavior is calm, cooperative. ls4 Pain: Denies pain. EENT: Reports nasal congestion since 3 weeks nasal discharge that is watery since 3 weeks. Neuro: No deficits noted. Cardiovascular: No deficits noted. Respiratory: Reports cough that is Airway is patent Respiratory effort is even, unlabored, Respiratory pattern is regular, Breath sounds are clear bilaterally. the patient has mild shortness of breath Denies shortness of breath labored breathing, pain with respiration, pain with cough, pain with movement, air hunger. GI: No deficits noted. No signs and/or symptoms were reported involving the gastrointestinal system. : No deficits noted. No signs and/or symptoms were reported regarding the genitourinary system. Derm: No deficits noted. No signs and/or symptoms reported regarding the dermatologic system. Musculoskeletal: No deficits noted. No signs and/or symptoms reported regarding the musculoskeletal system. Historical: - Allergies: 12:04 NKA; ll1 - PMHx: 12:04 Hypertension; ll1 - PSHx: 12:04 Heart surgery - artery repair; Facial reconstruction; ll1 - Immunization history:: Flu vaccine is not up to date. - Social history:: Smoking status: Patient reports the use of cigarette tobacco products, smokes one pack cigarettes per day. Patient uses alcohol, only on a social basis. Patient/guardian denies using street drugs. - Coronavirus screen:: The patient has NOT traveled to [place] in the past 14 days. The patient has NOT had contact with known/suspected case of Coronavirus? Proceed with normal triage procedures. Screenin:12 Abuse screen: Denies threats or abuse. Denies injuries from another. Nutritional ls4 screening: No deficits noted. Tuberculosis screening: No symptoms or risk factors identified. Fall Risk None identified. Assessment: 13:00 Reassessment: Patient appears in no apparent distress at this time. Patient and/or ls4 family updated on plan of care and expected duration. Pain level reassessed. Patient is alert, oriented x 3, equal unlabored respirations, skin warm/dry/pink. 14:13 Reassessment: Patient appears in no apparent distress at this time. Patient and/or ls4 family updated on plan of care and expected duration. Pain level reassessed. Patient is alert, oriented x 3, equal unlabored respirations, skin warm/dry/pink. Vital Signs: 12:01 BP 187 / 98; Pulse 86; Resp 18; Temp 98.5; Pulse Ox 98% ; Weight 90.72 kg; Height 5 ft. ll1 11 in. (180.34 cm); Pain 6/10; 14:45 BP 148 / 84; Pulse 78; Resp 16; Temp 98.4(O); Pulse Ox 98% on R/A; Pain 0/10; ls4 12:01 Body Mass Index 27.89 (90.72 kg, 180.34 cm) ll1 ED Course: 11:51 Patient arrived in ED. rg4 12:03 Triage completed. ll1 12:04 Arm band placed on Patient placed in an exam room, on a stretcher. ll1 12:05 Nemo Pretty FNP-C is [facility]. kb 12:05 Jhon Cheatham MD is Attending Physician. kb 12:41 Twyla Decker, JORGE A is Primary Nurse. ls4 12:59 Initial lab(s) drawn, by me, sent to lab. First set of blood cultures drawn by me, ls4 Second set of blood cultures drawn by me, X-ray(s) taken. Patient maintains SpO2 saturation greater than 95% on room air. 13:18 No provider procedures requiring assistance completed. Inserted saline lock: 18 gauge ls4 in left antecubital area, using aseptic technique. Blood collected. 13:30 Chest Single View XRAY In Process Unspecified. EDMS 14:12 No apparent distress. ls4 14:12 Patient has correct armband on for positive identification. Bed in low position. Call ls4 light in reach. Side rails up X 1. Pulse ox on. NIBP on. Verbal reassurance given. 14:46 IV discontinued, intact, bleeding controlled, No redness/swelling at site. Pressure ls4 dressing applied. Administered Medications: 13:17 Drug: NS 0.9% 1000 ml Route: IV; Rate: 1000 ml; Site: left antecubital; ls4 14:35 Follow up: IV Status: Completed infusion; IV Intake: 1000ml ls4 14:35 Drug: Augmentin 875 mg Route: PO; ls4 14:35 Drug: SOLU-Medrol 125 mg Route: IVP; Site: left antecubital; ls4 Intake: 14:35 IV: 1000ml; Total: 1000ml. ls4 Outcome: 14:19 Discharge ordered by . kb 14:46 Discharged to home ambulatory. ls4 14:46 Condition: good 14:46 Discharge instructions given to patient, Instructed on discharge instructions, follow up and referral plans. medication usage, safety practices, Demonstrated understanding of instructions, follow-up care, medications, Prescriptions given X 2. 14:46 Patient left the ED. ls4 Addendum: 06/10/2020 16:11 Addendum: COVID-19 Result: Negative result given to RN to notify pt. Attempted to s s contact pt regarding negative COVID-19 swab results. Left voice mail. 18:40 Addendum: COVID-19 Result: Negative result given to RN to notify pt. Notified pt of s s negative COVID 19 swab results. Pt advised that even with a negative test result they should remain in isolation until symptom free for 3 days without medication. Pt also advised to return to the ED for worsening symptoms. Signatures: Dispatcher [employer] EDMS Nemo Pretty, CHAVO HERRERA-Kari Zapien, RN RN Randi Winkler rg4 Twyla Decker RN RN ls4 Kit Almonte RN RN ll1
[2020-06-09] MEDS ORDERED: METHYLPREDNISOLONE 125 MG INJ ONE (14:38)
[2020-06-09] MEDS ORDERED: AMOX/K CLAV 875 MG TAB ONE (14:38)
[2020-06-09 14:53] VITALS: O2SAT 98
[2020-06-09 14:55] VITALS: BP 148/84; TEMP 98.4
== END 2020-06-09 14:46 | disposition home or self-care (01) ==
LOC: ER 11:48
DX: J01.90 Acute sinusitis, unspecified (principal); Z20.828 Contact with and (suspected) exposure to other viral communicable diseases; J06.9 Acute upper respiratory infection, unspecified; I10 Essential (primary) hypertension; F17.210 Nicotine dependence, cigarettes, uncomplicated
CPT/HCPCS: 36415; 71045; 80048; 85025; 87040; 96361; 96374; 99284; J2930; J7030; U0002

== ENCOUNTER 2020-06-20 21:30 | Emergency (ER) | payer SELFPAY ==
--- OUTSIDE RECORDS SUMMARY | 2020-06-20 21:32 | XMS REPORT | Continuity of Care Document ---
:1970 Author Organization [facility] t Address [facility] Sandip Rodriguez [address] [place] [address] Care Team Providers Name Role Phone DR [...] (test code = DE1) TESTING PERFORMED BY: [employer] [address] Direct Exam (test code = DE17) [...] GRAM POSITIVE ORGANISMS ONLY. DIRECT STREP GROUP [id number] 10:58:00 Test Item Value Reference Range Interpretation Comments Culture Observations NO BETA HEMOLYTIC (test code = COB1) STREPTOCOCCUS ISOLATED Direct Exam (test code NEGATIVE FOR STREP A = DE3) ANTIGEN NM HIDA SCAN WITH [id number] 13:18:28HIDA scanLocation code: [id number] history: Right upper quadrant painComments: Following the intravenous administration of 6.0 mCi of technetium 99mCholetec, sequential imaging of the abdomen was performed. There is promptclearance and uptake by the liver with prompt excretion into the biliarysystem. There is visualization of the common bile duct and gallbladder at 15minutes and eventually opacification of the small bowel at 60 minutes.Impression:1. No evidence of acute cholecystitis.OCCULT [id number] 06:41:00 Test Item Value Reference Range Interpretation Comments Direct Exam (test code POSITIVE FOR OCCULT = DE1) BLOOD BASIC METABOLIC [id number] 05:16:00 Test Item Value Reference Range Interpretation [...] MORPH (test code = RBCMOR) NORMAL U/S [id number] 17:40:53RIGHT UPPER QUADRANT ULTRASOUNDLocation: [id number] HISTORY: Mild bilirubin elevation. Distended gallbladder on [...] or HIDA scan.CT ABDOMEN AND PELVIS WITH [id number] 15:49:29Contrast- enhanced CT of the abdomen and pelvisClinical indication: Left upper quadrant painComparison: NoneLocation [id number] CT is obtained from lung bases to [...] PRESENCE OF INFLUENZA ANTIGEN XR CHEST 2 [id number] 15:06:17Exam: Chest x-ray 2 viewsHISTORY: Chest painLocation: [id number]:The heart size is normal and lung ferreira [...] (test code = USPERM) /HPF NONE CARDIAC [id number] 15:00:00 Test Item Value Reference Range Interpretation Comments TROPONIN I (test code = A84) <0.015 ng/mL 0.000-0.045 CKMB (test code = A49) <1.0 ng/mL <=3.6 CPK (test code = 32A) 58 IU/L 39-308 [id number] 14:57:00 Test Item Value Reference Range Interpretation Comments MAGNESIUM (test code = 48A) 2.2 mg/dL 1.8-2.4 COMPREHENSIVE METABOLIC [id number] 14:56:00 Test Item Value Reference Range Interpretation [...] = 31A) 39 IU/L <=78 AMYLASE AND [id number] 14:56:00 Test Item Value Reference Range Interpretation [...]
[2020-06-20] MEDS ORDERED: NA CHLORIDE 0.9% 1,000 ML ONE (22:04)
[2020-06-20 22:40] LABS: Urine Blood TRACE (NEG); Urine Glucose TRACE (NEG); Urine Protein 2+ (NEG); Urine Specific Gravity 1.025 (1.005-1.030); Urine pH 5.5 (5.0-7.0)
[2020-06-20 22:43] LABS: Absolute Lymphocytes (CBC) 1.9 K/uL (0.7-4.9); Basophils % 0.7 % (0-1.3); Hematocrit 46.8 % (39.6-49.0); Lymphocytes % 13.5 % (15.3-44.8); MPV 9.4 fL (7.6-11.3); RBC Red Blood Cell Count 5.19 M/uL (4.33-5.43)
[2020-06-20 22:51] LABS: ALT/SGPT 228 U/L (12-78); AST/SGOT 167 U/L (15-37); Albumin 3.6 g/dL (3.4-5.0); Alkaline Phosphatase 65 U/L (45-117); BUN Blood Urea Nitrogen 16 mg/dL (7-18); Bicarbonate 23 mmol/L (21-32); Bilirubin Direct 0.6 mg/dL (0-0.2); Bilirubin Total 1.6 mg/dL (0.2-1.0); Glucose Level 126 mg/dL (74-106); Potassium 3.6 mmol/L (3.5-5.1); Protein, Total 7.7 g/dL (6.4-8.2); Sodium Level 134 mmol/L (136-145)
[2020-06-20 22:52] LABS: Barbiturates NEGATIVE (NEGATIVE); Benzodiazepines NEGATIVE (NEGATIVE); Cocaine NEGATIVE (NEGATIVE); METHAMPHETAM POSITIVE (NEGATIVE); Methadone NEGATIVE (NEGATIVE); Opiates NEGATIVE (NEGATIVE); Phencyclidine NEGATIVE (NEGATIVE); THC Cannibis POSITIVE (NEGATIVE)
--- NOTE | 2020-06-20 23:52 | EDPHYS ---
Physician Documentation [facility] Name: Semaj Ann Age: 49 yrs Sex: Male : 1970 Arrival Date: 06/20/2020 Time: 21:31 Bed 19 Private MD: ED Physician Kirt Copeland HPI: 06/20 23:52 This 49 yrs old Male presents to ER via Law Enforcement with complaints of kb drug use. 23:52 The patient presents to the emergency department with a possible overdose. Associated kb signs and symptoms: Pertinent positives: flight of ideas, abnormal behavior. Severity of symptoms: At their worst the symptoms were moderate in the emergency department the symptoms are unchanged. The patient has not experienced similar symptoms in the past. The patient has not recently seen a physician. Betsey CRENSHAW picked pt up for running around outside of apartment complex and appearing to be under the influence of some substance. Pt denies homicidal or suicidal ideations. PT will not cooperate with staff. When asked what brought him to the ER or if he is having any pain/symptoms that need evaluation pt states "just ask the community health advocate, they know why I'm here." Pt stated "she keeps saying I'm high, but that was one time. They are lying.". Historical: - Allergies: 21:50 NKA; rv - Home Meds: 21:50 Unable to obtain [Active]; rv - PMHx: 21:50 Hypertension; rv - PSHx: 21:50 Unable to obtain; rv - Immunization history:: Adult Immunizations unknown. - Social history:: Smoking status: unknown. ROS: 22:15 Constitutional: Negative for fever, chills, and weight loss, Cardiovascular: Negative kb for chest pain, palpitations, and edema, Respiratory: Negative for shortness of breath, cough, wheezing, and pleuritic chest pain, Abdomen/GI: Negative for abdominal pain, nausea, vomiting, diarrhea, and constipation, MS/Extremity: Negative for injury and deformity, Skin: Negative for injury, rash, and discoloration, Neuro: Negative for headache, weakness, numbness, tingling, and seizure, Psych: Negative for depression, anxiety, suicide ideation, homicidal ideation, and hallucinations. Exam: 22:15 Constitutional: This is a well developed, well nourished patient who is awake, alert, kb and in no acute distress. Head/Face: Normocephalic, atraumatic. Chest/axilla: Normal chest wall appearance and motion. Nontender with no deformity. No lesions are appreciated. Cardiovascular: Regular rate and rhythm with a normal S1 and S2. No gallops, murmurs, or rubs. Normal PMI, no JVD. No pulse deficits. Respiratory: Lungs have equal breath sounds bilaterally, clear to auscultation and percussion. No rales, rhonchi or wheezes noted. No increased work of breathing, no retractions or nasal flaring. Abdomen/GI: Soft, non-tender, with normal bowel sounds. No distension or tympany. No guarding or rebound. No evidence of tenderness throughout. Skin: Warm, dry with normal turgor. Normal color with no rashes, no lesions, and no evidence of cellulitis. MS/ Extremity: Pulses equal, no cyanosis. Neurovascular intact. Full, normal range of motion. Neuro: Awake and alert, GCS 15, oriented to person, place, time, and situation. Cranial nerves II-XII grossly intact. Motor strength 5/5 in all extremities. Sensory grossly intact. Cerebellar exam normal. Normal gait. 22:15 Psych: Behavior/mood is uncooperative, angry, Affect is calm, Patient has no thoughts/intents to harm self or others. Delusions/hallucinations are not present. 22:16 ECG was reviewed by the Attending Physician. Vital Signs: 21:44 BP 128 / 98; Pulse 130; Resp 20; Temp 98.7; Pulse Ox 96% ; Weight 86.18 kg; Height 5 rv ft. 11 in. (180.34 cm); 22:30 BP 128 / 98; Pulse 123; Resp 30; Pulse Ox 98% on R/A; rv 22:53 BP 139 / 92; Pulse 124; Resp 27; Pulse Ox 100% on R/A; rv 23:30 BP 129 / 94; Pulse 119; Resp 25; Pulse Ox 97% on R/A; rv 21:44 Body Mass Index 26.50 (86.18 kg, 180.34 cm) rv MDM: 21:44 Patient medically screened. 22:16 Data reviewed: vital signs, nurses notes. Data interpreted: Pulse oximetry: on room air kb is 96 %. Interpretation: normal. 23:52 Counseling: I had a detailed discussion with the patient and/or guardian regarding: the kb historical points, exam findings, and any diagnostic results supporting the discharge/admit diagnosis, lab results, the need for outpatient follow up, a family practitioner, to return to the emergency department if symptoms worsen or persist or if there are any questions or concerns that arise at home. 06/20 21:50 Order name: Acetaminophen; Complete Time: 22:54 kb 06/20 21:50 Order name: Basic Metabolic Panel; Complete Time: 22:55 kb 06/20 21:50 Order name: CBC with Diff; Complete Time: 22:48 kb 06/20 21:50 Order name: ETOH Level; Complete Time: 22:58 kb 06/20 21:50 Order name: Hepatic Function; Complete Time: 22:55 kb 06/20 21:50 Order name: PT-INR; Complete Time: 23:09 kb 06/20 21:50 Order name: Ptt, Activated; Complete Time: 23:09 kb 06/20 21:50 Order name: Salicylate; Complete Time: 23:17 kb 06/20 21:50 Order name: Urine Drug Screen; Complete Time: 22:55 kb 06/20 21:50 Order name: EKG; Complete Time: 21:51 kb 06/20 21:50 Order name: EKG - Nurse/Tech; Complete Time: 22:24 kb 06/20 21:50 Order name: IV Saline Lock; Complete Time: 22:24 kb 06/20 22:28 Order name: Urine Dipstick--Ancillary (enter results); Complete Time: 22:41 ar5 06/20 21:50 Order name: Labs collected and sent; Complete Time: 22:24 kb 06/20 21:50 Order name: Urine Dipstick-Ancillary (obtain specimen); Complete Time: 22:24 kb EC:16 Rate is 126 beats/min. Rhythm is regular. QRS [place] is Normal. MT interval is normal at kb 116 msec. QRS interval is normal at 72 msec. QT interval is normal at 328 msec. Administered Medications: 22:29 Drug: NS 0.9% 1000 ml Route: IV; Rate: 1000 ml; Site: right forearm; rv Disposition: 06/21 06:18 Co-signature as Attending Physician, Kirt Copeland MD. mh7 Disposition: 06/20/20 23:52 Discharged to Law Enforcement. Impression: Poisoning by other psychostimulants, accidental (unintentional) - recreational. - Condition is Stable. - Discharge Instructions: Stimulant Use Disorder-Methamphetamines. - Medication Reconciliation Form, Thank You Letter, Antibiotic Education, Prescription Opioid Use form. - Follow up: Emergency Department; When: As needed; Reason: Worsening of condition. Follow up: Private Physician; When: 2 - 3 days; Reason: Recheck today's complaints, Continuance of care, Re-evaluation by your physician. Signatures: Dispatcher [employer] EDMS Nemo Pretty, LEADER ASSEMBLER-C LEADER ASSEMBLER-Fausto Parsons, RN RN Kirt Angeles MD MD mh7 Corrections: (The following items were deleted from the chart) 00:03 06/20 23:52 06/20/2020 23:52 Discharged to Law Enforcement. Impression: Poisoning by rv other psychostimulants, accidental (unintentional) - recreational. Condition is Stable. Forms are Medication Reconciliation Form, Thank You Letter, Antibiotic Education, Prescription Opioid Use. Follow up: Emergency Department; When: As needed; Reason: Worsening of condition. Follow up: Private Physician; When: 2 - 3 days; Reason: Recheck today's complaints, Continuance of care, Re-evaluation by your physician. kb
--- NOTE | 2020-06-20 23:52 | ER ---
Nurse's Notes [facility] Name: Semaj Ann Age: 49 yrs Sex: Male : 1970 Arrival Date: 06/20/2020 Time: 21:31 Bed 19 Private MD: Diagnosis: Poisoning by other psychostimulants, accidental (unintentional)-recreational Presentation: 06/20 21:44 Chief complaint: PATIENT WAS SEEN RUNNING AROUND APARTMENT COMPLEX IN [place]. POLICE rv FOUND HIM AND SEEN HALLUCINATING. AUDITORY AND VISUAL, TALKING TO HIM. PATIENT ASKED FOR MEDICAL HELP, POLICE BROUGHT THE PATIENT HERE. PATIENT DENIES HURTING HIMSELF OR OTHERS. Coronavirus screen: At this time, unable to obtain information related to travel outside the [place] Ebola Screen: No symptoms or risks identified at this time. 21:44 Method Of Arrival: Law Enforcement: [facility] access hospital rv 21:50 Initial Sepsis Screen: Does the patient meet any 2 criteria? No. Patient's initial rv sepsis screen is negative. Does the patient have a suspected source of infection? No. Patient's initial sepsis screen is negative. Risk Assessment: Do you want to hurt yourself or someone else? Patient reports no desire to harm self or others. Onset of symptoms is unknown. 21:50 Acuity: SALONI 2 rv Triage Assessment: 21:50 General: Appears unkempt, Behavior is INAPPROPRIATE. Pain: Unable to use pain scale. rv Patient is disoriented. EENT: No signs and/or symptoms were reported regarding the EENT system. Neuro: Level of Consciousness is awake, confused, Oriented to person, place, time. Cardiovascular: Patient's skin is warm and dry. Rhythm is sinus tachycardia. Respiratory: Airway is patent Respiratory effort is even, unlabored. Derm: Skin with poor turgor. Historical: - Allergies: 21:50 NKA; rv - Home Meds: 21:50 Unable to obtain [Active]; rv - PMHx: 21:50 Hypertension; rv - PSHx: 21:50 Unable to obtain; rv - Immunization history:: Adult Immunizations unknown. - Social history:: Smoking status: unknown. Screenin:27 Abuse screen: Denies threats or abuse. Denies injuries from another. Nutritional rv screening: No deficits noted. Tuberculosis screening: No symptoms or risk factors identified. Fall Risk None identified. Assessment: 23:40 Reassessment: PATIENT IS AGITATED. RIPPED OFF THE CABLES, CLOSED THE DOOR AND TRIED TO rv USE THE IV POLE AND THREATEN TO HURT THE NURSE. PATIENT IS HOLDING THE DOOR DOWN TO KEEP HIMSELF INSIDE THE ROOM. 23:51 Reassessment: LAW ENF[employer]CEMENT PRESENT. rv Vital Signs: 21:44 BP 128 / 98; Pulse 130; Resp 20; Temp 98.7; Pulse Ox 96% ; Weight 86.18 kg; Height 5 rv ft. 11 in. (180.34 cm); 22:30 BP 128 / 98; Pulse 123; Resp 30; Pulse Ox 98% on R/A; rv 22:53 BP 139 / 92; Pulse 124; Resp 27; Pulse Ox 100% on R/A; rv 23:30 BP 129 / 94; Pulse 119; Resp 25; Pulse Ox 97% on R/A; rv 21:44 Body Mass Index 26.50 (86.18 kg, 180.34 cm) rv ED Course: 21:31 Patient arrived in ED. cf2 21:44 Fausto Ahumada, JORGE A is Primary Nurse. rv 21:44 Nemo Pretty FNP-C is [facility]. kb 21:44 Kirt Copeland MD is Attending Physician. kb 21:50 Triage completed. rv 21:52 Arm band placed on Patient placed in the treatment room, on a stretcher, Patient rv notified of wait time. 22:26 Initial lab(s) drawn, by me, sent to lab. EKG done, by ED staff, reviewed by Nemo TONY. Inserted saline lock: 22 gauge in right forearm, using aseptic technique. Blood collected. 22:28 Patient has correct armband on for positive identification. laboratory monitor on. Pulse rv ox on. NIBP on. 06/21 00:01 No provider procedures requiring assistance completed. IV discontinued, intact, rv bleeding controlled, No redness/swelling at site. Pressure dressing applied. Administered Medications: 06/20 22:29 Drug: NS 0.9% 1000 ml Route: IV; Rate: 1000 ml; Site: right forearm; rv Outcome: 23:52 Discharge ordered by . harris 06/21 00:02 Discharged to Law Enforcement rv Condition: good Instructed on discharge instructions. 00:03 Patient left the ED. rv Signatures: Nemo Pretty FNP-C GL ACCOUNTANT-Ckb Fausto Ahumada, RN RN rv Gisell Zhou 2
[2020-06-24 00:26] VITALS: TEMP 98.7
[2020-06-24 00:29] VITALS: BP 129/94; O2SAT 97
== END 2020-06-21 00:03 ==
LOC: ER 21:30
DX: T43.691A Poisoning by other psychostimulants, accidental (unintentional), initial encounter (principal); I10 Essential (primary) hypertension
CPT/HCPCS: 36415; 80048; 80076; 80307; 80320; 80329; 81003; 85025; 85610; 85730; 93005; 99284; J7030

== ENCOUNTER 2020-06-21 09:57 | Emergency (ER) | payer SELFPAY ==
--- OUTSIDE RECORDS SUMMARY | 2020-06-21 11:02 | XMS REPORT | Continuity of Care Document ---
:1970 Author Organization [facility] t Address [facility] Sandip Rodriguez [address] [place] [address] Care Team Providers Name Role Phone DR [...] (test code = DE1) TESTING PERFORMED BY: [employer] [address] Direct Exam (test code = DE17) [...] GRAM POSITIVE ORGANISMS ONLY. DIRECT STREP GROUP [id number] 10:58:00 Test Item Value Reference Range Interpretation Comments Culture Observations NO BETA HEMOLYTIC (test code = COB1) STREPTOCOCCUS ISOLATED Direct Exam (test code NEGATIVE FOR STREP A = DE3) ANTIGEN NM HIDA SCAN WITH [id number] 13:18:28HIDA scanLocation code: [id number] history: Right upper quadrant painComments: Following the intravenous administration of 6.0 mCi of technetium 99mCholetec, sequential imaging of the abdomen was performed. There is promptclearance and uptake by the liver with prompt excretion into the biliarysystem. There is visualization of the common bile duct and gallbladder at 15minutes and eventually opacification of the small bowel at 60 minutes.Impression:1. No evidence of acute cholecystitis.OCCULT [id number] 06:41:00 Test Item Value Reference Range Interpretation Comments Direct Exam (test code POSITIVE FOR OCCULT = DE1) BLOOD BASIC METABOLIC [id number] 05:16:00 Test Item Value Reference Range Interpretation [...] MORPH (test code = RBCMOR) NORMAL U/S [id number] 17:40:53RIGHT UPPER QUADRANT ULTRASOUNDLocation: [id number] HISTORY: Mild bilirubin elevation. Distended gallbladder on [...] or HIDA scan.CT ABDOMEN AND PELVIS WITH [id number] 15:49:29Contrast- enhanced CT of the abdomen and pelvisClinical indication: Left upper quadrant painComparison: NoneLocation U0Yahjvq CT is obtained from lung bases to [...] PRESENCE OF INFLUENZA ANTIGEN XR CHEST 2 [id number] 15:06:17Exam: Chest x-ray 2 viewsHISTORY: Chest painLocation: [id number]:The heart size is normal and lung ferreira [...] (test code = USPERM) /HPF NONE CARDIAC [id number] 15:00:00 Test Item Value Reference Range Interpretation Comments TROPONIN I (test code = A84) <0.015 ng/mL 0.000-0.045 CKMB (test code = A49) <1.0 ng/mL <=3.6 CPK (test code = 32A) 58 IU/L 39-308 [id number] 14:57:00 Test Item Value Reference Range Interpretation Comments MAGNESIUM (test code = 48A) 2.2 mg/dL 1.8-2.4 COMPREHENSIVE METABOLIC [id number] 14:56:00 Test Item Value Reference Range Interpretation [...] = 31A) 39 IU/L <=78 AMYLASE AND [id number] 14:56:00 Test Item Value Reference Range Interpretation [...]
--- NOTE | 2020-06-21 12:07 | ER ---
Nurse's Notes [facility] Name: Semaj Ann Age: 49 yrs Sex: Male : 1970 Arrival Date: 06/21/2020 Time: 09:59 Bed 16 Private MD: Diagnosis: Dehydration;Homelessness Presentation: 06/21 10:18 Chief complaint: Patient states: "I was just here and they said to come back and get aa5 checked out again in like 2 or 3 days and I am homeless and don't have anywhere else to go to be checked out". Pt denies any suicidal or homicidal ideations, denies hallucinations. Pt states he just feels tired because he hasn't slept. 10:18 Coronavirus screen: Client denies travel out of the [place] in the last 14 days. At this aa5 time, the client does not indicate any symptoms associated with coronavirus-19. Ebola Screen: Patient negative for fever greater than or equal to 101.5 degrees Fahrenheit, and additional compatible Ebola Virus Disease symptoms. Initial Sepsis Screen: Does the patient meet any 2 criteria? No. Patient's initial sepsis screen is negative. Does the patient have a suspected source of infection? No. Patient's initial sepsis screen is negative. Risk Assessment: Do you want to hurt yourself or someone else? Patient reports no desire to harm self or others. Onset of symptoms was June 21, 2020. 10:18 Acuity: SALONI 3 aa5 10:18 Method Of Arrival: Ambulatory aa5 Historical: - Allergies: 10:25 NKA; aa5 - PMHx: 10:25 Hypertension; aa5 - Immunization history:: Adult Immunizations unknown. - Social history:: Smoking status: Patient reports the use of cigarette tobacco products, smokes one pack cigarettes per day. Patient uses street drugs, Methamphetamine (Meth). - Family history:: not pertinent. - Hospitalizations: : No recent hospitalization is reported. Screenin:40 Abuse screen: Denies threats or abuse. Has been threatened or abused. Nutritional jr10 screening: No deficits noted. Tuberculosis screening: No symptoms or risk factors identified. Fall Risk None identified. Assessment: 11:40 General: Appears in no apparent distress. Behavior is calm, cooperative, appropriate jr10 for age. Pain: Denies pain. Neuro: No deficits noted. Level of Consciousness is awake, alert, obeys commands, Oriented to person, place, time, situation, Appropriate for age. Cardiovascular: No deficits noted. Denies chest pain. Respiratory: No deficits noted. Airway is patent Respiratory effort is even, unlabored, Respiratory pattern is regular, symmetrical, Denies cough, shortness of breath. GI: No deficits noted. No signs and/or symptoms were reported involving the gastrointestinal system. : No deficits noted. No signs and/or symptoms were reported regarding the genitourinary system. EENT: No deficits noted. No signs and/or symptoms were reported regarding the EENT system. Derm: Skin is moist, ariana feet; states that his shoes have been wet and "it's the only pair of socks and shoes that I have and I've been walking in them all night"; pt ariana feet moist; dry pair of socks provided; skin remains intact; pt denies hx of DM. Musculoskeletal: No deficits noted. No signs and/or symptoms reported regarding the musculoskeletal system. 11:55 Reassessment: pt given sandwich, fruit and juice. Denies hx of DM. Pt given extra pair jr10 of socks to leave with. Vital Signs: 10:18 BP 143 / 81; Pulse 120; Resp 18 S; Temp 99.0(O); Pulse Ox 97% on R/A; Weight 86.18 kg aa5 (R); Height 5 ft. 10 in. (177.80 cm) (R); Pain 0/10; 12:35 BP 123 / 78; Pulse 97; Resp 18; Pulse Ox 100% on R/A; jr10 10:18 Body Mass Index 27.26 (86.18 kg, 177.80 cm) aa5 ED Course: 09:59 Patient arrived in ED. as 10:18 Arm band placed on. aa5 10:24 Triage completed. aa5 11:37 Zuleyma Torres, JORGE A is Primary Nurse. jr10 11:38 Lawrence Adler MD is Attending Physician. rn 11:40 Patient has correct armband on for positive identification. Bed in low position. Call jr10 light in reach. Side rails up X 1. Cardiac monitoring not applicable on this patient. 11:56 No provider procedures requiring assistance completed. Patient did not have IV access jr10 during this emergency room visit. Administered Medications: No medications were administered Outcome: 12:06 Discharge ordered by . rn 12:35 Discharged to home ambulatory. jr10 12:35 Condition: good 12:35 Discharge instructions given to patient, Instructed on discharge instructions, follow up and referral plans. Demonstrated understanding of instructions, follow-up care. 12:36 Patient left the ED. jr10 Signatures: Delisa Calderon Roman, MD MD rn Calderon, Audri, RN RN aa5 Zuleyma Torres RN RN jr10
--- NOTE | 2020-06-21 12:07 | EDPHYS ---
Physician Documentation [facility] Name: Semaj Ann Age: 49 yrs Sex: Male : 1970 Arrival Date: 06/21/2020 Time: 09:59 Bed 16 Private MD: ED Physician Lawrence Adler HPI: 06/21 12:01 This 49 yrs old Male presents to ER via Ambulatory with complaints of rn checkup, Psych Problem. 12:01 This 49 yrs old Male presents to ER via Ambulatory with complaints of rn checkup, homeless. 12:03 Reports homeless, trying to check into homeless fdc tonight but not able to until rn later, is very hungry and has been walking around a lot, feet wet and hurting.. Onset: The symptoms/episode began/occurred today. Severity of symptoms: At their worst the symptoms were mild in the emergency department the symptoms are unchanged. The patient has experienced similar episodes in the past. The patient has been recently seen by a physician:. Just seen here last night, no medical complaints. . Historical: - Allergies: 10:25 NKA; aa5 - PMHx: 10:25 Hypertension; aa5 - Immunization history:: Adult Immunizations unknown. - Social history:: Smoking status: Patient reports the use of cigarette tobacco products, smokes one pack cigarettes per day. Patient uses street drugs, Methamphetamine (Meth). - Family history:: not pertinent. - Hospitalizations: : No recent hospitalization is reported. ROS: 12:03 Constitutional: Negative for fever, chills, and weight loss, Eyes: Negative for injury, rn pain, redness, and discharge, Neck: Negative for injury, pain, and swelling, Cardiovascular: Negative for chest pain, palpitations, and edema, Respiratory: Negative for shortness of breath, cough, wheezing, and pleuritic chest pain, Abdomen/GI: Negative for abdominal pain, nausea, vomiting, diarrhea, and constipation, MS/Extremity: + feet wet and achy Neuro: Negative for headache, weakness, numbness, tingling, and seizure. Exam: 12:03 Constitutional: This is a well developed, well nourished patient who is awake, alert, rn and in no acute distress. MS/ Extremity: Pulses equal, no cyanosis, wet, wrinkled feet without open wounds or signs of infection Neuro: Awake and alert, GCS 15, oriented to person, place, time, and situation. Cranial nerves II-XII grossly intact. Motor strength 5/5 in all extremities. Sensory grossly intact. Cerebellar exam normal. Normal gait. Vital Signs: 10:18 BP 143 / 81; Pulse 120; Resp 18 S; Temp 99.0(O); Pulse Ox 97% on R/A; Weight 86.18 kg aa5 (R); Height 5 ft. 10 in. (177.80 cm) (R); Pain 0/10; 12:35 BP 123 / 78; Pulse 97; Resp 18; Pulse Ox 100% on R/A; jr10 10:18 Body Mass Index 27.26 (86.18 kg, 177.80 cm) aa5 MDM: 11:38 Patient medically screened. rn 12:03 Differential Diagnosis dehydration, homeless. Data reviewed: vital signs, nurses notes, rn and as a result, I will discharge patient. Counseling: I had a detailed discussion with the patient and/or guardian regarding: the historical points, exam findings, and any diagnostic results supporting the discharge/admit diagnosis, the need for outpatient follow up, to return to the emergency department if symptoms worsen or persist or if there are any questions or concerns that arise at home. Special discussion: I discussed with the patient/guardian in detail that at this point there is no indication for admission to the hospital. It is understood, however, that if the symptoms persist or worsen the patient needs to return immediately for re-evaluation. ED course: No medical complaints, given change of socks, and food to eat, will dc with instructions to keep feet dry and seek fdc tonight. He is planning on moving back home with family who has work and place for him to help him out.. Administered Medications: No medications were administered Disposition: 06/21/20 12:06 Discharged to Home. Impression: Dehydration, Homelessness. - Condition is Stable. - Discharge Instructions: Dehydration, Adult. - Medication Reconciliation Form, Thank You Letter, Antibiotic Education, Prescription Opioid Use form. - Follow up: Private Physician; When: As needed; Reason: Recheck today's complaints, Re-evaluation by your physician. - Problem is an ongoing problem. - Symptoms are unchanged. Signatures: Lawrence Adler MD MD rn Calderon, Audri RN RN aa5 Zuleyma Torres RN RN jr10 Corrections: (The following items were deleted from the chart) 12:36 12:06 06/21/2020 12:06 Discharged to Home. Impression: Dehydration; Homelessness. jr10 Condition is Stable. Forms are Medication Reconciliation Form, Thank You Letter, Antibiotic Education, Prescription Opioid Use. Follow up: Private Physician; When: As needed; Reason: Recheck today's complaints, Re-evaluation by your physician. Problem is an ongoing problem. Symptoms are unchanged. rn
[2020-06-24 07:31] VITALS: TEMP 99
[2020-06-24 07:32] VITALS: BP 123/78; O2SAT 100
== END 2020-06-21 12:36 | disposition home or self-care (01) ==
LOC: ER 09:57
DX: E86.0 Dehydration (principal); Z59.0 Homelessness; I10 Essential (primary) hypertension; F17.210 Nicotine dependence, cigarettes, uncomplicated
CPT/HCPCS: 99281